=== PATIENT | female | born 2000 | race Two or more races ===

== ENCOUNTER 2020-12-14 06:46 | Emergency (ER) | payer BC, OTHER ==
[~2020-12-14] VITALS: Ht 162.6 cm; Wt 48.1 kg
[2020-12-14 06:49] VITALS: BP 99/68
== END 2020-12-14 07:49 | disposition left against medical advice (07) ==
LOC: ER 06:46
DX: R10.30 Lower abdominal pain, unspecified (principal); R11.0 Nausea; Z53.21 Procedure and treatment not carried out due to patient leaving prior to being seen by health care provider